=== PATIENT | female | born 1945 | race Caucasian/White ===

== ENCOUNTER 2017-12-16 07:23 | Day surgery (SDC) | payer OTHER ==
[2017-12-16] MEDS: TETRACAINE 0.5% UNIT-DOSE OP PRN ×2 (07:45→08:40)
[2017-12-16] MEDS: BETADINE OPTH PREP OP PRN ×2 (07:45→08:40)
[2017-12-16] MEDS: CYCLOGYL 2% OPTH OP PRN ×3 (07:46→07:56)
[2017-12-16] MEDS ORDERED: ZOFRAN 4 MG/2 ML IVP ONE (07:59)
[2017-12-16] MEDS ORDERED: BRIMONIDINE TARTRATE 0.2% OPTH SOL OP PRN (07:59)
[2017-12-16] MEDS ORDERED: BSS WITH EPINEPHRINE OP ONE (07:59)
[2017-12-16] MEDS ORDERED: LIDOCAINE 1% 20 ML MDV ID STA (07:59)
[2017-12-16] MEDS ORDERED: LIDOCAINE 1%/PHENYLEPHRINE 1.5% BSS (SURGERY) INTRAOCULA ONE (07:59)
[2017-12-16] MEDS ORDERED: DEX-MOXI-KETOR OPTH INJ 1/0.5/0.4 MG/ML IO ONE (07:59)
[2017-12-16] MEDS ORDERED: ZOFRAN 4 MG/2 ML ONE (08:53)
[2017-12-16] MEDS ORDERED: VERSED ONE (08:53)
[2017-12-16] MEDS ORDERED: SUBLIMAZE ONE (08:53)
[2017-12-16 12:21] VITALS: TEMP 97.9
[2017-12-16 15:16] VITALS: BP 132/67
== END 2017-12-16 09:40 | disposition home or self-care (01) ==
LOC: SURG 07:23
PROVIDERS: ATTEND Ophthalmology
DX: H25.11 Age-related nuclear cataract, right eye (principal)